=== PATIENT | female | born 1940 | race Caucasian/White ===

== ENCOUNTER 2022-08-14 16:16 | Observation (INO) | payer MEDICARE, OTHER, SELFPAY ==
[2022-08-13 15:40] VITALS: BMI 20.7
[2022-08-14] VITALS (16 sets, daily range): BP systolic 132–188; BP diastolic 75–127; PULSE 83–100; RESP 16–18; TEMP 36.1–36.8; O2SAT 92–99
[2022-08-14] MEDS: sodium chloride 0.9% 1,000 ML 30 ML IV (11:37)
[2022-08-14] MEDS: scopolamine 1.5 Patch 1 PATCH TRANSDERMA (11:37)
[2022-08-14] MEDS: enoxaparin 30 mg/0.3 mL Syringe SUBCUT (11:38)
--- NOTE | 2022-08-14 11:43 | ANES.PREANE2 ---
Pre-Anesthetic Assessment Height/Weight: Height 1.47 m Weight 44.906 kg Temp Pulse Resp Pulse Ox O2 Del Method 97.7 F 93 18 96 Room Air 08/14/22 11:14 08/14/22 11:14 08/14/22 11:14 08/14/22 11:14 08/14/22 11:15 Preop Diagnosis: Vaginal vault prolapse Operation Date: 08/14/22 12:40 Proposed Procedures p Sacrospinous ligament suspension 45224,N99.3(Not Applicable) - Levar Curtis MD Familial anesthetic complications: None Was Beta Cely taken within 24 hours: N/A Was Clonidine taken within 24 hours: N/A Last intake: Intake Last Liquid Date 08/13/22 Last Liquid Time 21:30 Last Solid Date 08/13/22 Last Solid Time 21:30 Social No alcohol and No tobacco Exam alert, oriented x 3, clear to auscultation bilaterally and regular rate & rhythm murmur Airway Mallampati: Class II Dentition: full CV/HEM White coat HTN Denies CP, SOB, or syncopal episodes Metabolic Thyroid Disease Anesthetic Plan ASA status: 3 Anesthesia: General Risk of > 500 ml blood loss (7ml/kg in children): No Medications/Allergies Home Medications Medication Instructions Recorded Confirmed Last Taken Type levothyroxine 50 mcg capsule 50 mcg PO DAILY 07/09/22 08/13/22 08/14/22 07:00 History Allergies Allergy/AdvReac Type Severity Reaction Status Date / Time No Known Allergies Allergy Verified 08/14/22 11:09 Current Medications Generic Name Dose Route Start Last Admin Trade Name Freq PRN Reason Stop Dose Admin Sodium Chloride 1,000 mls @ 30 mls/hr 08/14/22 11:15 08/14/22 11:37 Sodium Chloride 0.9% IV 08/15/22 11:14 30 mls/hr .Q24H KIET Administration PFSH Anesthesia Family History Father Diabetes Heart disease Mother Heart disease Denies family history of Colon cancer Ovarian cancer Hypercholesteremia Breast cancer Hypertension Uterine cancer Thyroid disease Stroke Data Anesthesia Cardiac Studies: No Data to Display
[2022-08-14 11:55] LABS: Urine Appearance Hazy (CLEAR); Urine Color Yellow (Yellow); pH Urine 5 (5-7)
[2022-08-14 11:56] LABS: Add Urine Microscopic? YES; Bilirubin Urine Neg (Negative); Blood Urine 2+ (Negative); Glucose Urine UA Norm (Normal); Ketones Urine 1+ (Negative); Leukocyte Esterase Urine 2+ (Negative); Nitrate Urine Positive (Negative); Protein Urine Neg (Negative); Urobilinogen Urine Neg (Negative)
[2022-08-14 11:58] LABS: Add Urine Culture? Yes; Bacteria Urine 3+ /hpf; Squamous Epithelial Cell Urine RARE /hpf (0-5); WBC Urine 40-55 /hpf (0-5)
[2022-08-14 11:58] LABS: Basophils # 0.1 10^3/uL (0.0-0.1); Eosinophils # 0.1 10^3/uL (0.0-0.8); Eosinophils % 1.6 %; Hematocrit 48.5 % (37.0-47.0); Lymphocytes # 2.2 10^3/uL (0.8-4.8); Lymphocytes % 31.4 %; Mean Platelet Volume 9.1 fL (7.4-10.4); Monocytes # 0.4 10^3/uL (0.2-0.9); Monocytes % 5.1 %; Neutrophils # 4.26 10^3/uL (1.8-7.7); Neutrophils % 60.5 %; Nucleated Red Blood Cells % 0 %; Platelet Count 232 10^3/cmm (130-400); Red Blood Count 5.16 10^6/uL (4.1-5.3)
--- NOTE | 2022-08-14 11:59 | W.PM.OPSUD ---
Surgery/Procedure H&P Update DATE OF PROCEDURE: August 14, 2022 DATE H&P PERFORMED: 08/13/22 H&P UPDATE INFORMATION: I have reviewed H&P completed within last 30 days, I have examined patient prior to procedure and No changes to prior documentation PREOP DIAGNOSIS: Vaginal vault prolapse PLANNED PROCEDURE: Operation Date: 08/14/22 12:40 Proposed Procedures p Sacrospinous ligament suspension 45946,N99.3(Not Applicable) - Levar Curtis MD
[2022-08-14 12:12] LABS: Alanine Aminotransferase 10 U/L (0-33); Albumin Level 4.6 g/dL (3.5-5.2); Alkaline Phosphatase 143 U/L (35-105); Blood Urea Nitrogen 13 mg/dL (8-23); Calcium 9.9 mg/dL (8.5-10.5); Carbon Dioxide 22 mmol/L (22-29); Chloride 104 mmol/L (98-107); Globulin 2.6 g/dL (1.3-4.6); Glucose 88 mg/dL (65-115); Osmolality Calculated 288 mOsm/kg (285-295); Sodium 139 mmol/L (136-145); Total Bilirubin 0.4 mg/dL (0.15-1.2); Total Protein 7.2 g/dL (6.6-8.7)
[2022-08-14 12:13] LABS: INR 0.93 (0.8-1.2)
[2022-08-14 12:18] LABS: Anion Gap 17.3 (5-19)
[2022-08-14 12:19] LABS: Aspartate Amino Transferase 23 U/L (0-32); Potassium 4.3 mmol/L (3.5-5.1)
[2022-08-14] MEDS: ceFOXitin 2,000 MG in sodium chloride 0.9% (plus) 50 ML 100 MG IV (12:28)
[2022-08-14] MEDS: lidocaine-epi 2% 20 mL INJ INJECTION (13:36)
--- NOTE | 2022-08-14 13:54 | PM.OP ---
Operative Report Date of procedure: August 14, 2022 Pre-op diagnosis: Preop Diagnosis Vaginal prolapse, cystocele stage III Post-op diagnosis: Same Post-op findings: Cystocele stage III Procedure done: Anterior colporrhaphy augmented with allograft. Single incision mid urethral sling. Cystoscopy Implants: Coloplast Altis single incision sling. Coloplast allograft. Surgeon: Levar Curtis MD Estimated blood loss (mL): 25 IV fluids (mL): 800 Urine output (mL): 200 Procedure: After obtaining informed consent, the patient was taken to the operating room and placed in the supine position, given general anesthesia, and prepped and draped in sterile fashion. The abdomen, vulva and vagina were prepped and draped in a sterile manner. A time out procedure was performed. The vaginal mucosa was then injected in the midline with normal saline. The vaginal mucosa was scored in the midline with the Bovie approximately 1 cm medial to the urethral meatus to 1 cm distal to the vaginal cuff. This vaginal mucosa was then undermined and then incised in the midline with the Metzenbaum scissors. The lateral aspects of the vaginal mucosa were then grasped with the Allis clamps and the vaginal mucosa was then dissected off the underlying fascia with the Metzenbaum scissors. Again, there was noted to be quite a bit of oozing at the incision, which was controlled with cautery. After adequate dissection was performed, bilaterally. A Coloplast allograft modified at time of application to fit spacea, 3x3 cm piece. Coloplast allograft placed in front of cystocele ready to be implanted facing the vagina mucosa. Suture is placed at distal end of graft and placed towards vaginal cuff. Final suture is placed on proximal portion of the graft to complete the placement overlying the bladder. Then Interrupted vertical mattress sutures of 0 Vicryl were used to elevate the cystocele superiorly. The excessive vaginal mucosa was then trimmed with the Metzenbaum scissors and the vaginal mucosa was then reapproximated in the running interlocking fashion with 2-0 Vicryl. A vertical midline incision was made beneath the midurethra, nearly 1.5 cm length. Careful submucosal dissection was performed bilaterally up to the interior portion of the inferior pubic ramus. The insertion of adductor longus tendon on the patient?s pubic ramus was identified as reference land alicia. Palpated the notch along the internal edge of ischiopubic ramus where the adductor longus tendon and the inferior pubic ramus meet. The Altis single incision sling (SIS) was selected. Then the needle of the SIS inserted aiming at the location of this notch. One of the integrated self-fixating tips place onto the needle by sliding it over the end of the needle. The needle/sling assembly was inserted toward the location of identified reference notch making sure that the flat of the handle is perpendicular to the desired path. The needle was tracked along the posterior surface of the ischiopubic ramus until the midline alicia on the mesh is approximately at the midline position under the urethra. The needle was removed and the same was repeated on the contralateral side until the appropriate sling tension under the urethra was achieved ensuring that the mesh lays flat. The needle was removed and vaginal incision was closed in a running interlocking fashion with 2-0 Vicryl. Then the Christianson catheter was removed and cystoscope was inserted. The bladder was filled with sterile water. Complete evaluation of the bladder mucosa was performed noting no lacerations, dimpling, tears, bleeding of the mucosa or muscular layers. Both ureteral orifices were identified. Prompt excretion of urine from both ureteral orifices was noted. Cystoscope was withdrawn. The Christianson catheter was replaced. Excellent hemostasis was obtained. Sponge, lap, needle, and instrument counts were correct times three. The patient was taken to the recovery room, awake and in stable condition.
--- NOTE | 2022-08-14 15:14 | ANE.PACU2 ---
Inpatient post-anesthesia follow up: Airway intact: Yes Vital signs: Temperature 98.2 F Pulse Rate 100 Respiratory Rate 18 Blood Pressure 159/99 Pulse Oximetry 92 Oxygen Delivery Me thod Room Air Oxygen Flow Rate 6 Fraction of Inspir ed Oxygen Hydration adequate: Yes Nausea and vomiting: No Pain level: 1 Mental status: Baseline
[2022-08-14] MEDS: ketorolac 30 mg/mL INJ IVP ×2 (17:46→22:16)
[2022-08-14] MEDS: docusate sodium 100 mg Capsule PO (17:46)
[2022-08-14] MEDS: dextrose 5%-lactated ringers 1,000 ML 125 ML IV (22:16)
[2022-08-14] MEDS: simethicone 80 mg Chew PO (22:16)
[2022-08-15 05:13] VITALS: BP 128/76; PULSE 73; TEMP 36.5; O2SAT 93
[2022-08-15] MEDS: simethicone 80 mg Chew PO (05:13)
[2022-08-15] MEDS: ketorolac 30 mg/mL INJ IVP (05:13)
[2022-08-15 05:18] LABS: Hematocrit 37.9 % (37.0-47.0); Hemoglobin 12.3 g/dL (11.5-15.3); Mean Corpuscular HGB Conc 32.5 g/dL (30.0-36.0); Mean Corpuscular Hemoglobin 31.3 pg (28.0-34.0); Mean Corpuscular Volume 96.4 fl (81-99); Mean Platelet Volume 8.6 fL (7.4-10.4); Platelet Count 186 10^3/cmm (130-400); Red Blood Count 3.93 10^6/uL (4.1-5.3); Red Cell Distribution Width 12.9 % (12.1-15.1); White Blood Count 9.8 10^3/uL (4.0-10.0)
--- NOTE | 2022-08-15 08:21 | PM.OBGYDC ---
Discharge Providers RESEARCH ASSISTANT PROFESSOR Date of Admission: 08/14/22 16:16 Date of Discharge: 08/15/22 Attending Provider at Admission: Levar Curtis MD Attending Provider at Discharge: Levar Curtis MD Primary Care Provider: ROSIE Griffiths Reason for Visit Reason for Visit: N99.3 Hospital Course Hospital Course Mrs. Meeks 82-year-old female with a cystocele and stress urinary incontinence. Admitted for planned vaginal repair. An anterior colporrhaphy augmented with allograft and single incision mid urethral sling was performed without complications. Overnight observation was uneventful. She is afebrile and hemodynamically stable postoperative day 1. Tolerating diet well. Ambulating without difficulty. PVR [within normal limits]. Counseled regarding weight lifting limitations to 10 pounds and pelvic rest for 6 weeks (no sex, no tampons, no vaginal douches). Return to the emergency room if any fever, increased bleeding or pain. Physical Exam Narrative: GA: Alert and oriented ?3. HEENT: WNL. Heart: Regular rate and rhythm. Lungs: Clear to auscultation bilaterally. Abdomen: Bowel sounds present, nontender, minimal tenderness. PARAKEET RAISER: Spotting bleeding. Extremities: No edema, no cyanosis, no calves pain. Urinary Catheter Management: Christianson: Cath Placed During This Visit: yes Urinary Catheter Date of Insertion: 08/14/22 Urinary Catheter Time of Insertion: 12:54 History History History 7 Term 4 0 Miscarriages/Ectopic 3 Living Children 4 Discharge Data Studies Completed and Pending Pending at discharge Category Date Time Status Urine Culture Routine Lab 08/14/22 11:25 Received Laboratory Results WBC 9.8 10^3/uL (4.0-10.0) 08/15/22 05:10 RBC 3.93 10^6/uL (4.1-5.3) L 08/15/22 05:10 Hgb 12.3 g/dL (11.5-15.3) 08/15/22 05:10 Hct 37.9 % (37.0-47.0) 08/15/22 05:10 MCV 96.4 fl (81-99) 08/15/22 05:10 MCH 31.3 pg (28.0-34.0) 08/15/22 05:10 MCHC 32.5 g/dL (30.0-36.0) 08/15/22 05:10 RDW 12.9 % (12.1-15.1) 08/15/22 05:10 Plt Count 186 10^3/cmm (130-400) 08/15/22 05:10 MPV 8.6 fL (7.4-10.4) 08/15/22 05:10 Neut % (Auto) 60.5 % 08/14/22 11:28 Lymph % (Auto) 31.4 % 08/14/22 11:28 [place] % (Auto) 5.1 % 08/14/22 11:28 Eos % (Auto) 1.6 % 08/14/22 11:28 Baso % (Auto) 1.0 % 08/14/22 11:28 Neut # (Auto) 4.26 10^3/uL (1.8-7.7) 08/14/22 11:28 Lymph # (Auto) 2.2 10^3/uL (0.8-4.8) 08/14/22 11:28 [place] # (Auto) 0.4 10^3/uL (0.2-0.9) 08/14/22 11:28 Eos # (Auto) 0.1 10^3/uL (0.0-0.8) 08/14/22 11:28 Baso # (Auto) 0.1 10^3/uL (0.0-0.1) 08/14/22 11:28 Nucleated RBC % (auto) 0 % 08/14/22 11:28 Nucleated RBCs # 0.0 /100WBC 08/14/22 11:28 PT 12.80 SECONDS (12.1-14.9) 08/14/22 11:28 INR 0.93 (0.8-1.2) 08/14/22 11:28 Sodium 139 mmol/L (136-145) 08/14/22 11:28 Potassium 4.3 mmol/L (3.5-5.1) 08/14/22 11:28 Chloride 104 mmol/L (98-107) 08/14/22 11:28 Carbon Dioxide 22 mmol/L (22-29) 08/14/22 11:28 Anion Gap 17.3 (5-19) 08/14/22 11:28 BUN 13 mg/dL (8-23) 08/14/22 11:28 Creatinine 0.5 mg/dL (0.5-0.9) 08/14/22 11:28 GFR Calculation Not Reportable 08/14/22 11:28 Glucose 88 mg/dL (65-115) 08/14/22 11:28 Calculated Osmolality 288 mOsm/kg (285-295) 08/14/22 11:28 Calcium 9.9 mg/dL (8.5-10.5) 08/14/22 11:28 Total Bilirubin 0.4 mg/dL (0.15-1.2) 08/14/22 11:28 AST 23 U/L (0-32) 08/14/22 11:28 ALT 10 U/L (0-33) 08/14/22 11:28 Alkaline Phosphatase 143 U/L (35-105) H 08/14/22 11:28 Total Protein 7.2 g/dL (6.6-8.7) 08/14/22 11:28 Albumin 4.6 g/dL (3.5-5.2) 08/14/22 11:28 Globulin 2.6 g/dL (1.3-4.6) 08/14/22 11:28 Urine Color Yellow (Yellow) 08/14/22 11:25 Urine Appearance Hazy (CLEAR) A 08/14/22 11:25 Urine pH 5 (5-7) 08/14/22 11:25 Ur Specific [place] 1.020 (1.005-1.030) 08/14/22 11:25 Urine Protein Neg (Negative) 08/14/22 11:25 Urine Glucose (UA) Norm (Normal) 08/14/22 11:25 Urine Ketones 1+ (Negative) H 08/14/22 11:25 Urine Blood 2+ (Negative) H 08/14/22 11:25 Urine Nitrate Positive (Negative) H 08/14/22 11:25 Urine Bilirubin Neg (Negative) 08/14/22 11:25 Urine Urobilinogen Neg mg/dL (Negative) 08/14/22 11:25 Ur Leukocyte Esterase 2+ (Negative) H 08/14/22 11:25 Urine RBC 5-10 /hpf (0-2) H 08/14/22 11:25 Urine WBC 40-55 /hpf (0-5) H 08/14/22 11:25 Ur Squamous Epith Cells Rare /hpf (0-5) 08/14/22 11:25 Amorphous Sediment Not Reportable 08/14/22 11:25 Urine Bacteria 3+ /hpf (NONE) H 08/14/22 11:25 Blood Type O Negative 08/14/22 11:28 Rho(D) Type Negative 08/14/22 11:28 Antibody Screen Negative 08/14/22 11:28 Vitals Last Vital Signs Temp 97.7 F 08/15/22 05:13 Pulse 73 08/15/22 05:13 Resp 18 08/14/22 22:09 BP 128/76 08/15/22 05:13 Pulse Ox 93 08/15/22 05:13 O2 Del Method Room Air 08/15/22 05:13 O2 Flow Rate 6 08/14/22 14:09 Discharge Plan Discharge Patient Disposition: Home Condition: Stable Prescriptions: New acetaminophen 325 mg capsule 325 mg PO Q4H PRN (Reason: fever or postoperative pain) Qty: 60 0RF ibuprofen 800 mg tablet 800 mg PO TID PRN (Reason: pain) Qty: 60 0RF Continued levothyroxine 50 mcg capsule 50 mcg PO DAILY Discharge Orders: Discharge Order (Routine); Ordered 08/15/22 Ordered By: Levar Curtis Referrals: Levar Curtis MD [Physician] - 09/06/22 1:00 pm (3 week post-op: 09/06/22 @1:00 6 week post-op: 09/30/22 @1:00) Discharge Diet: Usual diet Discharge Activity: Limit activity as instructed Patient Instructions: Anterior Vaginal Repair (DC), OB Discharge Report, OB Food/Drug Interaction Guide, Opioid Safety, Bladder Sling for Women (GEN) Activity Restrictions/Additional Instructions: 1. Please call [facility] on next working day to make your post-operative appointment in 2 weeks. 2. Please stay home until you come back to the clinic on first post-hospatilization check up. 3. Please follow instructions on your medications CAREFULLY. 4. If you have abdominal incision, do not cover it unless dressing is necessary because of drainage. OK to shower, but avoid bath. Leave steri-strips until they fall off. If they are still on one week after surgery, you may remove them. 5. If you had vaginal surgery or vaginal repair, Dr. Curtis may instruct you to take SITZ bath. 6. Yellow, blood tinged odorous vaginal discharge is usually normal after hysterectomy or vaginal surgeries. 7. No SEXUAL INTERCOURSE, tampons, or douches until you are completely released from the post-operative care. 8. Avoid constipation by eating right and maybe using some Metamucil or Milk of Magnesia. 9. All prescription refills are given during the working hours. Please do no wait till it runs out. Call the clinic at [phone] before your medication runs out. The clinic will get in touch with your doctor to prescribe medications if necessary. 10. Please remain within 40 mile radius from our hospital because emergencies do happen now and then during the post-operative period. 11. If you have stairs at home, take one step at a time slowly and minimize the number of trips. It helps to stay in one floor for the next few days. No lifting except what you can lift by one hand until you are released from the post-operative care. 12. Driving is discouraged until you are well healed. It may be 3-4 weeks before you feel strong enough to drive. You should be able to turn and look through the rear window without pain and you should be able to push the brake pedal very hard without pain before you drive. No fast rules, but SAFETY should be your primary concern. DO NOT drive if you are on sedating medications such as narcotics. 13. Call the clinic (during working hours) to make urgent appointment or go to the Emergency room, if any of the following occurs: i. Vaginal bleeding becomes heavy, more than a period. ii. Incision becomes red and sore, or drains pus. iii. Your TEMPERATURE is over 100.4F or you have chill. iv. IV site becomes red and swollen (a little ``knot?? is usually OK) v. Persistent nausea and vomiting vi. Persistent constipation or diarrhea vii. Rash or allergic reaction to medications. Discharge Attestations RESEARCH ASSISTANT PROFESSOR Time Spent in Discharge Care*: greater than 30 min Coding Level of Care Code Acute Code for Chg Fwd Diagnoses
[2022-08-15] MEDS: docusate sodium 100 mg Capsule PO (09:25)
[2022-08-15 10:10] VITALS: BP 133/65; PULSE 85; RESP 16; TEMP 36.8; O2SAT 93
[2022-08-15 12:25] VITALS: BP 169/84; PULSE 88; RESP 16; TEMP 36.4; O2SAT 94
== END 2022-08-15 12:15 | disposition home or self-care (01) ==
LOC: OR 08-15 06:00 → OBGYN 08-15 06:00
PROVIDERS: Admitting Provider Obstetrics & Gynecology; PCP Nurse Practitioner Family; Visit Provider Obstetrics & Gynecology
PROC: (CPT 57282; principal; 2022-08-14 12:30)
PROC: 0JQC0ZZ Repair Pelvic Region Subcutaneous Tissue and Fascia, Open Approach (ICD-10-PCS; CPT 57240; 2022-08-14 12:30)
DX: N81.3 Complete uterovaginal prolapse (principal); E07.9 Disorder of thyroid, unspecified; Z79.899 Other long term (current) drug therapy
CPT/HCPCS: 57282; 36415; 51702; 51798; 80053; 81001; 85025; 85027; 85610; 86850; 86900; 87077; 87086; 87186; 96374; 96376; C1713; C1762; G0378; J0694; J1100; J1650; J1885; J2250; J2405; J2704; J3010; J3490; J7030; J7121

== ENCOUNTER → 2024-05-20 12:41 | Outpatient (BNVA) | payer MEDICARE, OTHER, SELFPAY | PROVIDERS: PCP Nurse Practitioner Family; Visit Provider Internal Medicine Cardiovascular Disease | DX: R07.9 Chest pain, unspecified (principal); R55 Syncope and collapse | CPT/HCPCS: 93005 ==

== ENCOUNTER 2024-06-15 14:27 | Outpatient (CLI) | payer MEDICARE, OTHER, SELFPAY ==
--- NOTE | 2024-06-15 15:00 | USCV_ITS ---
Shilpi Meeks Age: 84 Gender: F : 1940 Exam Date: 06/15/2024 14:51 Ordering Phys: Ellis Murphy MD ([email or web address]) Technologist: SEBAS Exam Location: [facility] [place] Indication: BP: 130 / 80 HR: 108 Rhythm: Sinus Technical Quality: Adequate MEASUREMENTS (Male / Female) Normal Values 2D ECHO LV Diastolic Diameter PLAX 4.4 cm 4.2 - 5.9 / 3.9 - 5.3 cm IVS Diastolic Thickness 1.1 cm 0.6 - 1.0 / 0.6 - 0.9 cm IVS Systolic Thickness 1.1 cm LVPW Diastolic Thickness 0.7 cm 0.6 - 1.0 / 0.6 - 0.9 cm LVPW Systolic Thickness 1.3 cm LVOT Diameter 2.0 cm LV Ejection Fraction 2D Teich 31.1 % LV Ejection Fraction MOD 4C 52.6 % LV Ejection Fraction MOD 2C 47.0 % LV Ejection Fraction 2C AL 46.1 % LA Diameter 3.2 cm RA Systolic Volume 4C AL 12.9 ml RA Systolic Volume 4C MOD 12.4 ml LA Sys Volume AL 35.8 cm cubed LA Sys Volume Index AL 27.4 cm cubed/m squared Aorta at Sinotubular Diameter 2.4 cm IVC Diameter 1.6 cm M-MODE LA Ao Ratio MM 1.6 AV Cusp Separation MM 1.1 cm DOPPLER AV Peak Velocity 150.0 cm/s LVOT Peak Velocity 73.0 cm/s AV Area Cont Eq vti 1.5 cm squared AV Area Cont Eq pk 1.5 cm squared MV Peak Velocity 130.0 cm/s MV Area PHT 6.7 cm squared Mitral E to A Ratio 0.5 TV Peak Velocity 268.0 cm/s TR Peak Velocity 306.0 cm/s TR Peak Gradient 37.5 mmHg TV Peak E Velocity 98.0 cm/s PV Peak Velocity 107.0 cm/s FINDINGS Left Ventricle Mildly increased left ventricular cavity size. Moderately decreased left ventricular systolic function. Left ventricular ejection fraction is estimated at 40 %. Grade III/IV diastolic dysfunction (restrictive filling pattern), severely elevated filling pressures. Global left ventricular hypokinesis. Right Ventricle The right ventricle is normal in size and function. Right Atrium The right atrium is normal in size. Left Atrium Moderately increased left atrial size. Mitral Valve Mildly thickened mitral valve. No mitral valve stenosis. Mild mitral valve regurgitation. Aortic Valve Moderate aortic valve calcification. Moderate aortic valve stenosis, mean gradient 4.8 mmHg, SHREE 1.5 cm squared. Mild aortic valve regurgitation. Tricuspid Valve Structurally normal tricuspid valve without significant stenosis or regurgitation. Pulmonary artery systolic pressure is normal. Pulmonic Valve Mild pulmonary valve regurgitation. Pericardium Normal pericardium without effusion. Aorta Normal ascending aorta dimension. IVC The inferior vena cava appears normal. CONCLUSIONS Mildly increased left ventricular cavity size. Moderately decreased left ventricular systolic function. Left ventricular ejection fraction is estimated at 40 %. Grade III/IV diastolic dysfunction (restrictive filling pattern), severely elevated filling pressures. Global left ventricular hypokinesis. Moderate aortic valve calcification. Moderate aortic valve stenosis, mean gradient 4.8 mmHg, SHREE 1.5 cm squared. Mild aortic valve regurgitation. There is no pericardial effusion. Right atrial pressure is around 5 mm of mercury. Ellis Murphy MD (Electronically Signed) Final Date: 16 June 2024 20:10 S
== END 2024-06-15 14:28 | disposition home or self-care (01) ==
PROVIDERS: PCP Nurse Practitioner Family; Visit Provider Internal Medicine Cardiovascular Disease
DX: R55 Syncope and collapse (principal); R93.1 Abnormal findings on diagnostic imaging of heart and coronary circulation; I51.7 Cardiomegaly; I34.0 Nonrheumatic mitral (valve) insufficiency; I35.8 Other nonrheumatic aortic valve disorders; I35.0 Nonrheumatic aortic (valve) stenosis; I35.1 Nonrheumatic aortic (valve) insufficiency; I37.1 Nonrheumatic pulmonary valve insufficiency
CPT/HCPCS: 93306

== ENCOUNTER → 2024-08-19 15:00 | Outpatient (BNVA) | payer MEDICARE, OTHER, SELFPAY | PROVIDERS: Visit Provider Internal Medicine Cardiovascular Disease | DX: R55 Syncope and collapse (principal); I10 Essential (primary) hypertension; I47.10 Supraventricular tachycardia, unspecified; I51.89 Other ill-defined heart diseases | CPT/HCPCS: 99214 ==

== ENCOUNTER → 2025-02-17 14:41 | Outpatient (BNVA) | payer MEDICARE, OTHER, SELFPAY | PROVIDERS: Visit Provider Internal Medicine Cardiovascular Disease | DX: I11.9 Hypertensive heart disease without heart failure (principal); R55 Syncope and collapse; I47.20 Ventricular tachycardia, unspecified | CPT/HCPCS: 99214 ==